=== PATIENT | female | born 1955 | race Caucasian/White ===

== ENCOUNTER 2016-07-07 10:12 | Inpatient (IN) | payer MEDICAID ==
[~2016-07-07] VITALS: Ht 167.6 cm; Wt 59.0 kg
[2016-07-07 11:23] LABS: PLATELET COUNT 251 x10^3mcL (130-400)
[2016-07-07 11:32] LABS: CARBON DIOXIDE 31.1 mmol/L (21-32); CHLORIDE SERUM 106 mmol/L (98-107); CREATININE SERUM 0.6 mg/dL (0.6-1.0); GFR1 > 60 mL/min; GLUCOSE SERUM 95 mg/dL (74-106); POTASSIUM SERUM 4.2 mmol/L (3.5-5.1); SODIUM SERUM 144 mmol/L (136-145)
[2016-07-07 11:33] LABS: BASOPHIL % 0 % (0-2); RED CELL DISTRIBUTION WIDTH 15.8 % (11.5-14.5)
[2016-07-07 11:43] LABS: ALBUMIN 3.7 g/dL (3.4-5.0); ALKALINE PHOSPHATASE 107 U/L (46-116); ALT/SGPT 105 U/L (14-59); AST/SGOT 162 U/L (15-37); BILIRUBIN TOTAL 1.22 mg/dL (0.20-1.00); TOTAL PROTEIN, SERUM 6.9 g/dL (6.4-8.2)
[2016-07-07 12:01] LABS: LIPASE 7413 IU/L (73-393)
[2016-07-07 15:05] LABS: CHOLESTEROL/HDL RATIO 2.9; MAGNESIUM 2.2 mg/dL (1.8-2.4); PHOSPHOROUS 4.8 mg/dL (2.5-4.9)
[2016-07-07 15:17] LABS: FREE T4 0.97 ng/dL (0.76-1.46); FREE THYROXINE INDEX 2.7 ug/dL (1.4-4.5); T4(THYROXINE) 8.5 ug/dL (4.7-13.3)
[2016-07-07 15:20] LABS: T3 TOTAL 1.26 ng/mL
[2016-07-07 15:24] VITALS: BP 143/61
[2016-07-07 18:22] LABS: UA SPECIFIC GRAVITY 1.015 (1.005-1.035); urine erythrocyte NEGATIVE (NEGATIVE)
[2016-07-07 18:23] LABS: microscopic required? YES
[2016-07-07 18:37] VITALS: BP 126/65
[2016-07-07 19:00] LABS: AMPHETAMINE QUAL UR NONE DETECTED (NEG <=1000)
[2016-07-07 21:53] VITALS: BP 112/47
[2016-07-08 06:40] LABS: BILIRUBIN DIRECT 0.28 mg/dL (0.0-0.2); TOTAL PROTEIN, SERUM 6.4 g/dL (6.4-8.2)
[2016-07-08 06:41] LABS: ALBUMIN 3.2 g/dL (3.4-5.0)
[2016-07-08 06:47] VITALS: BP 115/61
[2016-07-08 09:33] VITALS: BP 109/52
[2016-07-08 12:23] VITALS: BP 116/65
[2016-07-08 16:39] VITALS: BP 124/57
[2016-07-08 22:39] VITALS: BP 100/64
[2016-07-08 22:49] VITALS: BP 141/67
[2016-07-09 06:43] VITALS: BP 121/69
[2016-07-09 06:55] LABS: BASOPHIL % 0.6 % (0-2); PLATELET COUNT 225 x10^3mcL (130-400)
[2016-07-09 07:00] LABS: RED CELL DISTRIBUTION WIDTH 15.2 % (11.5-14.5)
[2016-07-09 07:06] LABS: ALBUMIN 3.5 g/dL (3.4-5.0); ALKALINE PHOSPHATASE 136 U/L (46-116); ALT/SGPT 152 U/L (14-59); AST/SGOT 60 U/L (15-37); BILIRUBIN TOTAL 1.2 mg/dL (0.20-1.00); CALCIUM 8.9 mg/dL (8.5-10.1); CHLORIDE SERUM 104 mmol/L (98-107); CREATININE SERUM 0.6 mg/dL (0.6-1.0); GFR1 > 60 mL/min; GLUCOSE SERUM 81 mg/dL (74-106); LIPASE 66 IU/L (73-393); MAGNESIUM 1.9 mg/dL (1.8-2.4); POTASSIUM SERUM 3.9 mmol/L (3.5-5.1); SODIUM SERUM 142 mmol/L (136-145); TOTAL PROTEIN, SERUM 6.9 g/dL (6.4-8.2)
[2016-07-09 07:29] LABS: AMYLASE 22 U/L (25-115)
[2016-07-09 10:07] VITALS: BP 119/59
[2016-07-09 21:07] VITALS: BP 121/62
[2016-07-10 05:58] VITALS: BP 104/65
[2016-07-10 07:20] VITALS: BP 103/67
[2016-07-10 07:26] LABS: BASOPHIL % 0.1 % (0-2); PLATELET COUNT 227 x10^3mcL (130-400)
[2016-07-10 07:28] LABS: RED CELL DISTRIBUTION WIDTH 15.4 % (11.5-14.5)
[2016-07-10 07:40] LABS: CALCIUM 8.9 mg/dL (8.5-10.1); CARBON DIOXIDE 27.4 mmol/L (21-32); CHLORIDE SERUM 101 mmol/L (98-107); CREATININE SERUM 0.5 mg/dL (0.6-1.0); GFR1 > 60 mL/min; GLUCOSE SERUM 121 mg/dL (74-106); MAGNESIUM 1.8 mg/dL (1.8-2.4); PHOSPHOROUS 3.5 mg/dL (2.5-4.9); POTASSIUM SERUM 3.5 mmol/L (3.5-5.1); SODIUM SERUM 139 mmol/L (136-145)
[2016-07-10 08:33] LABS: ALBUMIN 3.8 g/dL (3.4-5.0); BILIRUBIN DIRECT 0.26 mg/dL (0.0-0.2); BILIRUBIN TOTAL 0.9 mg/dL (0.20-1.00); TOTAL PROTEIN, SERUM 7.4 g/dL (6.4-8.2)
[2016-07-10 09:31] VITALS: BP 114/63
[2016-07-10 12:45] VITALS: BP 113/76
[2016-07-10 18:42] VITALS: BP 111/64
[2016-07-10 22:11] VITALS: BP 115/63
[2016-07-11 05:45] VITALS: BP 124/58
[2016-07-11 07:17] LABS: ALBUMIN 2.9 g/dL (3.4-5.0); ALKALINE PHOSPHATASE 97 U/L (46-116); ALT/SGPT 133 U/L (14-59); AST/SGOT 63 U/L (15-37); BILIRUBIN TOTAL 0.6 mg/dL (0.20-1.00); CALCIUM 8.7 mg/dL (8.5-10.1); CARBON DIOXIDE 20.5 mmol/L (21-32); CHLORIDE SERUM 104 mmol/L (98-107); CREATININE SERUM 0.6 mg/dL (0.6-1.0); GFR1 > 60 mL/min; GLUCOSE SERUM 112 mg/dL (74-106); POTASSIUM SERUM 3.9 mmol/L (3.5-5.1); SODIUM SERUM 139 mmol/L (136-145)
[2016-07-11 08:01] LABS: BASOPHIL % 0.4 % (0-2); PLATELET COUNT 202 x10^3mcL (130-400)
[2016-07-11 09:50] VITALS: BP 138/59
[2016-07-11] MEDS ORDERED: FLO4 PO (14:32)
[2016-07-11] MEDS ORDERED: NOR10T PO (14:33)
[2016-07-11] MEDS ORDERED: COLACE100 MG PO (14:33)
== END 2016-07-11 18:40 | disposition home or self-care (01) | DRG 263 ==
LOC: ED 10:12 → DU 14:27 → MU 14:27 → DU 15:15 → MU 07-08 13:38
PROVIDERS: Emergency Medicine; Family Medicine; Internal Medicine Gastroenterology; Surgery; ADMIT Family Medicine
PROC: 0FT44ZZ Resection of Gallbladder, Percutaneous Endoscopic Approach (ICD-10-PCS; principal; 2016-07-10 10:00)
DX: K85.10 Biliary acute pancreatitis without necrosis or infection (principal); N17.0 Acute kidney failure with tubular necrosis; K80.00 Calculus of gallbladder with acute cholecystitis without obstruction; N13.2 Hydronephrosis with renal and ureteral calculous obstruction; E44.0 Moderate protein-calorie malnutrition; R73.03 Prediabetes; D64.9 Anemia, unspecified; Z68.21 Body mass index [BMI] 21.0-21.9, adult
CPT/HCPCS: 80307; 83880; 84439; 94150; C1887; C9113; J0330; J0690; J0696; J1885; J2250; J3010; J3490; J7030; J7120; Q0092; Q9967